=== PATIENT | male | born 1980 | race Caucasian/White ===

== ENCOUNTER 2016-10-10 05:35 | Day surgery (SDC) | payer OTHER ==
[2016-10-08 09:30] VITALS: BMI 29.0
--- NOTE | 2016-10-08 09:50 | PAT Medication Instructions ---
Service Date Oct 08, 2016. Current Home Medication List Cetirizine (Zyrtec), 10 MG PO QAM Fluticasone Propionate (Nasal) (Flonase Allergy Relief), 2 SPRAYS KLEVER QAM Ibuprofen Tab (Advil), 400 MG PO PRN Montelukast Sodium (Montelukast Sodium), 1 TAB PO HS Prednisone (Prednisone), 10 MG PO TAPERING DOSE [Amino Acid], 1 DOSE PO PRN [Amoxiicillin-Pot Cl], 1 TAB PO BID Medication Instructions For Your Scheduled Surgery - Hold the following medications the morning of surgery: Cetirizine (Zyrtec), 10 MG PO QAM Fluticasone Propionate (Nasal) (Flonase Allergy Relief), 2 SPRAYS KLEVER QAM Ibuprofen Tab (Advil), 400 MG PO PRN [Amino Acid], 1 DOSE PO PRN - Take the following medications the morning of surgery with a sip of water OTHERWISE NOTHING TO EAT OR DRINK AFTER MIDNIGHT: Prednisone (Prednisone), 10 MG PO TAPERING DOSE [Amoxiicillin-Pot Cl], 1 TAB PO BID - Take the following medications as scheduled the night before surgery: Montelukast Sodium (Montelukast Sodium), 1 TAB PO HS [Amoxiicillin-Pot Cl], 1 TAB PO BID If you have any questions please call us at [phone] or [phone] or [phone]
[~2016-10-10] VITALS: Ht 177.8 cm; Wt 91.3 kg
[~2016-10-10 05:35] MED LIST: AMINO ACID PO; AMOXICILLIN PO; CETI10TA84 PO; CLAVULANATE PO; FLUT0.15 NAE; IBUP-103 PO; MONT1TAB5 PO; PRED10TA PO
[2016-10-10] MEDS ORDERED: LACTATED RINGER'S 1000ML 1,000 ML IV SCH ×2 (06:00→09:24)
[2016-10-10 06:09] VITALS: BP 155/85; PULSE 82; TEMP 36.5; O2SAT 100; Ht 177.8 cm; Wt 91.3 kg
--- NOTE | 2016-10-10 06:32 | History & Physical Bridge Note ---
H&P Re-Evaluation Bridge Note: I have examined the patient, reviewed the History & Physical and in the interval since the performance of the History & Physical I have noted the following changes of clinical significance: No changes noted
[2016-10-10] MEDS ORDERED: ONDANSETRON INJ 2 MG/ML 2 ML VIAL ONE ×2 (06:41→08:52)
[2016-10-10] MEDS ORDERED: MIDAZOLAM HCL 1 MG/ML 2ML VIAL ONE (06:41)
[2016-10-10] MEDS ORDERED: LIDOCAINE HCL 2% 2 ML VIAL (20MG/ML) ONE (06:41)
[2016-10-10] MEDS ORDERED: GLYCOPYRROLATE INJ 0.2 MG/ML VIAL ONE ×2 (06:41→08:07)
[2016-10-10] MEDS ORDERED: FENTANYL CITRATE INJ 50 MCG/1 ML 2 ML VIAL ONE ×2 (06:41→09:24)
[2016-10-10] MEDS ORDERED: ROCURONIUM BROMIDE 10 MG/ML 5 ML VIAL ONE ×2 (06:41→08:07)
[2016-10-10] MEDS ORDERED: NEOSTIGMINE METHYLSULFATE 5 MG/5 ML SYR ONE (06:41)
[2016-10-10] MEDS ORDERED: PROPOFOL IV EMULSION 10 MG/ML 20 ML VIAL IV ONE ×3 (06:41→08:07)
[2016-10-10] MEDS ORDERED: DEXAMETHASONE SOD INJ 4 MG/ML VIAL ONE (06:41)
[2016-10-10] MEDS ORDERED: LIDOCAINE/EPINEPHRINE 1% 20 ML VIAL ONE (07:10)
[2016-10-10] MEDS ORDERED: LIDOCAINE 4% W/AFRIN NASAL SOLN 4ML ONE ×2 (07:11→08:16)
[2016-10-10] MEDS ORDERED: EpINEphrine INJ 1MG/ML AMP 1 MG/ML AMP ONE (07:11)
[2016-10-10] MEDS ORDERED: CEFAZOLIN SOD 1 GM VIAL ONE (07:23)
[2016-10-10] MEDS ORDERED: LABETALOL HCL IV 5 MG/ML 20ML ONE (08:09)
[2016-10-10] MEDS ORDERED: HYDROmorphone INJ 1 MG/ML SYR IV PRN (09:15)
[2016-10-10] MEDS ORDERED: FENTANYL CITRATE INJ 50 MCG/1 ML 2 ML VIAL IV PRN (09:15)
[2016-10-10] MEDS ORDERED: PROMETHAZINE HCL INJ 6.25 MG in SODIUM CHLORIDE 0.9% 50ML 50 ML IV PRN (09:15)
[2016-10-10] MEDS ORDERED: ONDANSETRON INJ 2 MG/ML 2 ML VIAL IV PRN ×2 (09:15→09:30)
[2016-10-10] MEDS ORDERED: ATROPINE SULFATE 0.1 MG/ML 5ML SYR IV PRN (09:15)
[2016-10-10] MEDS ORDERED: EpHEDrine SULFATE INJ 50 MG/ML AMP IV PRN (09:15)
[2016-10-10] MEDS ORDERED: HYDROmorphone INJ 1 MG/ML SYR ONE (09:24)
--- NOTE | 2016-10-10 09:26 | [facility] Operative Report ---
Operative Report Operative Date Oct 10, 2016. Pre-Operative Diagnosis Chronic sinusitis, nasal septal deviation, hypertrophy of both inferior nasal turbinates, and nasal polyps Post-Operative Diagnosis same Procedure(s) Performed IMAGE-GUIDED BILATERAL FESS, SEPTOPLASTY, AND BILATERAL INFERIOR TURBINATE REDUCTION Surgeon Dr. Osuna Phlebotomist Medical Lab Assistant Surgeon(s) NONE Estimated Blood Loss 100 ml Findings 1. SEVERE SINONASAL POLYPOSIS 2. BILATERAL [place] BULLOSA 3. L>R SEPTAL DEVIATION 4. SEVERE BILATERAL INFERIOR TURBINATE HYPERTROPHY 5. PURULENCE WITHIN ALL PARANASAL SINUSES Specimens none per surgeon I attest to the content of the Intraoperative Record and any orders documented therein. Any exceptions are noted below.
[2016-10-10] MEDS ORDERED: OXYMETAZOLINE HCL 0.05% NA SPR 15 ML BTL PRN (09:30)
[2016-10-10] MEDS ORDERED: HYDROCODONE/ACETAMOPHEN 5/325MG TAB PO PRN (09:30)
--- NOTE | 2016-10-10 09:33 | Discharge Instructions ---
Discharge Instructions Admission Reason for Admission: Chronic Sinustitis; Nasal Septal Deviation Discharge Discharge Diagnosis / Problem: same. Discharge Goals Goal(s): Improve function Activity Recommendations Activity Limitations: per Instructions/Follow-up section Lifting Limitations: no more than 10 pounds Exercise/Sports Limitations: as tolerated Shower/Bathe: no limitations ACTIVITY RECOMMENDATIONS: * Being up and around is good, but no strenuous activity, heavy lifting or physical exertion for one week. * Keep your head elevated 30 degrees when lying down or sleeping. * Do not blow your nose * Avoid hot showers. MEDICATIONS: *PLEASE GET AFRIN NASAL SPRAY - USE 2 SPRAYS EACH NOSTRIL THREE TIMES DAILY FOR 3 DAYS ONLY THEN NEEDED FOR NOSEBLEEDS *USE NASAL SALINE SPRAY - 2 SPRAYS EACH NOSTRIL EVERY 4 HOURS WHILE AWAKE UNTIL FOLLOW UP APPT * RESUME PREDNISONE, AUGMENTIN. YOU HAVE A NEW NARCOTIC PAIN MEDICATION PRESCRIPTION (ON CHART) - USE NEEDED FOR PAIN * Resume previous medications unless instructed otherwise by your surgeon. * Avoid aspirin or Aspirin containing products, i.e. Ibuprofen (Advil) and other non-steroidal anti-inflammatories as they may increase bleeding. SPECIAL CARE INSTRUCTIONS: * Expect to have bloody drainage from your nose and/or down your throat for one to three days. Change drip pad as needed. * You may experience nasal and facial congestion, pain and pressure, this is normal. * Please call with an significant and/or progressive pain, redness, swelling around the eyes, visual changes, fever of 101.5, active bleeding stiff neck or any problems or concerns. * If active bleeding occurs, spray the nose three times at one minute intervals with Afrin spray and call . If unable to reach the doctor, go to the nearest Emergency Department. FOLLOW UP VISIT: * FOLLOW UP SCHEDULED WITH DR. LUGO. . Instructions / Follow-Up Instructions / Follow-Up FOLLOW UP SCHEDULED WITH DR. LUGO. Current Hospital Diet Patient's current hospital diet: Discharge Diet Recommended Diet: Regular Diet Procedures Procedures Performed: Septoplasty, Bilateral Inferior Turbinate Outfracture and Turbinoplasty; Bilateral Maxillary Antrostomy; Bilateral Ethmoidectomies; Bilateral Sphenoidotomies; Lena Bullosa Resection Pending Studies Studies pending at discharge: no Medical Emergencies . Who to Call and When: Medical Emergencies: If at any time you feel your situation is an emergency, please call 911 immediately. . Non-Emergent Contact Non-Emergency issues call your: Primary Care Provider . "Provider Documentation" section prepared by Hannah Corrales. VTE Core Measure Inpt VTE Proph given/why not?: SCD's
[2016-10-10 10:00] VITALS: BP 118/83; PULSE 43; TEMP 36.6; O2SAT 94
--- NOTE | 2016-10-10 10:28 | OPERATIVE REPORT ---
DATE OF OPERATION: 10/10/2016 PREOPERATIVE DIAGNOSIS: 1. Chronic polypoid rhinosinusitis. 2. Septal deviation. 3. Bilateral ruben bullosa. 4. Bilateral inferior turbinate hypertrophy. POSTOPERATIVE DIAGNOSIS: 1. Chronic polypoid rhinosinusitis. 2. Septal deviation. 3. Bilateral ruben bullosa. 4. Bilateral inferior turbinate hypertrophy. PROCEDURES: Breathez [employer] fusion image guided bilateral functional endoscopic sinus surgery consisting of: 1. Bilateral endoscopic ruben bullosa resection. 2. Bilateral maxillary antrostomies. 3. Bilateral complete ethmoidectomies. 4. Balloon sinuplasty assisted bilateral frontal sinusotomies. 5. Bilateral sphenoidotomies. 6. Septoplasty. 7. Bilateral inferior turbinate outfracture and turbinoplasty. SURGEON: Dr. Osuna. ANESTHESIA: General endotracheal. ESTIMATED BLOOD LOSS: 100 mL. FINDINGS: 1. Bilateral ruben bullosa. 2. Severe sinonasal polyposis involving all the paranasal sinuses. 3. Purulence within all the bilateral paranasal sinuses. 4. Severe polypoid mucosal thickening and hypervascular mucosa involving the sinonasal cavities. 5. Left greater than right septal deviation with large bony septal spurs posteriorly on the left hand side. 6. Severe bilateral inferior turbinate hypertrophy. SPECIMENS: None. COMPLICATIONS: None. INDICATIONS FOR THE PROCEDURE: The patient is a 36-year-old male with a history of chronic polypoid rhinosinusitis which has been unresponsive to maximal medical therapy including systemic antibiotics and steroids. He was found to have severe allergies on allergy skin testing. He presents for the above-mentioned procedure on an outpatient elective basis. OPERATION AND FINDINGS: DESCRIPTION OF PROCEDURE: After informed consent had been obtained from the patient, the patient was wheeled to the operating room and placed on the operating table in the supine position. Monitors were placed. After induction of general endotracheal anesthesia, the patient was prepped in the usual fashion for image guided endoscopic sinus surgery. The GiveGab fusion headset was placed and was registered, calibrated and verified and used throughout the sinus case. Lidocaine and epinephrine soaked neurosurgical pledgets were placed in the bilateral nasal cavities and pressure applied. The left-sided pledgets were first removed. The left middle turbinate was hypertrophied due to a large ruben bullosa. The left middle turbinate was injected with 1% lidocaine with 1:100,000 epinephrine. A [place] elevator was used to medialize the left middle turbinate and the lateral nasal wall and uncinate process were also injected with 1% lidocaine with 1:100,000 epinephrine. Lidocaine and epinephrine pledget was then placed into the left middle meatus. The right side was then addressed in a similar fashion. The left side pledgets were then removed. A sickle knife was used to incise the left middle turbinate and the lateral half of the middle turbinate was removed using straight Delfino-Cut forceps and powered instrumentation. Of note, the ruben bullosa was filled with polypoid tissue. An uncinectomy was then performed using a [place] elevator. A straight Delfino-Cut forceps and powered instrumentation. The natural ostium of the left maxillary sinus was identified and this was enlarged anteriorly, inferiorly, and posteriorly using powered instrumentation and straight Delfino-Cut forceps. Of note, the patient had very thick sclerotic bone and severe polypoid mucosal thickening involving the left maxillary sinus along with purulence. Next, attention was taken to the ethmoid sinus. The ethmoid bulla was entered and polypoid tissue was removed using the powered instrumentation. An anterior ethmoidectomy was then performed using powered instrumentation. The grand lamella of the left middle turbinate was then penetrated and more severe polypoid tissue was in the posterior ethmoid system. A complete ethmoidectomy was therefore performed. Using image guidance and staying medial and inferior the left sphenoid sinus was entered using a straight suction. The medial and inferior aspect of the sinus ostia was enlarged using powered instrumentation. A curved frontal sinus, suction was then used to cannulate the left frontal sinus. There was purulence within the left frontal sinus which was completely evacuated. A #6 frontal sinus balloon was inflated to 12 atmospheres of pressure in 2 different locations to dilate the frontal recess tract. Powered instrumentation was then used to remove polypoid tissue that was blocking the left frontal ethmoid recess. Of note, there was severe polypoid mucosal thickening and sinonasal polyposis as well as purulence involving all the paranasal sinuses. He had hypervascular edematous polypoid mucosa as well. The right side was then addressed in a similar fashion with similar intraoperative findings. The nasal septum was then injected with 1% lidocaine with 1:100,000 epinephrine. Lidocaine and epinephrine pledgets were then placed in the bilateral nasal cavities and pressure applied. The pledgets were then removed and a #15 scalpel was used to make a left hemitransfixion incision through which the left-sided mucoperichondrial mucoperiosteal flap was elevated. Most of the patient's deviation was not cartilaginous but rather bony and there was a large bony septal spur impinging on the airway posteriorly on the left hand side. This was removed using Andrew forceps. Of note, the septal mucosal lining was quite thin and hypervascular. There also was a small cartilaginous spur caudally on the right hand side which was nonobstructed which was left undisturbed in order to maintain the patient's nasal cartilaginous structural support. The septal cavity was then suctioned. The left hemitransfixion incision was closed with several simple interrupted 4-0 chromic sutures. A 4-0 plain gut suture on a Tony needle was then used to perform a quilting stitch of the mucoperichondrial mucoperiosteal flaps bilaterally to help prevent septal hematoma. A [place] elevator was then used to infracture and subsequently outfracture the inferior turbinates bilaterally. The inferior turbinates were injected with 1% lidocaine with 1:100,000 epinephrine. A 2.0 mm turbinate blade using powered instrumentation was then used to perform bilateral inferior turbinoplasties in a submucosal fashion. The sinonasal cavities were then suctioned. Of note, there was some bleeding from the right sphenopalatine artery and this was cauterized using suction Bovie electrocautery. This achieved adequate hemostasis. Merogel was then placed into the bilateral ethmoid cavities and middle meati. The nasal cavities and nasopharynx were then suctioned. An orogastric tube was placed and the stomach was suctioned free of air and stomach contents. This marked the end of the case. The patient tolerated the procedure well. There were no apparent complications. The patient was extubated and transferred to recovery room in stable condition. I attest to the content of the Intraoperative Record and any orders documented therein. Any exceptio ns are noted below.
[2016-10-10 10:31] VITALS: BP 120/82; PULSE 55; TEMP 36.3; O2SAT 94
[2016-10-10] MEDS ORDERED: OXYMETAZOLINE HCL 0.05% NA SPR 15 ML BTL ONE (10:53)
[2016-10-10 11:00] VITALS: BP 126/84; PULSE 55; TEMP 36.5; O2SAT 94
--- NOTE | 2016-10-10 11:00 | Anesthesiology Progress Note ---
Anesthesia Post Op Note Date & Time Oct 10, 2016 at 11:00 Vital Signs Pain Intensity: 1 Vital Signs Past 12 Hours Date Time Temp Pulse Resp B/P Pulse Ox O2 Delivery O2 Flow Rate FiO2 10/10/16 10:31 36.3 55 16 120/82 94 Room Air 0 10/10/16 10:00 36.6 43 16 118/83 94 Room Air 0 10/10/16 09:52 36.5 10/10/16 09:48 127/81 10/10/16 09:45 55 10/10/16 09:45 55 16 94 10/10/16 09:43 116/94 10/10/16 09:40 47 16 91 10/10/16 09:40 49 10/10/16 09:38 131/86 10/10/16 09:35 49 10/10/16 09:35 49 14 99 10/10/16 09:33 128/90 10/10/16 09:30 61 14 100 10/10/16 09:30 60 14 10/10/16 09:29 125/75 10/10/16 09:25 63 14 100 10/10/16 09:25 Room Air 10/10/16 09:25 62 14 10/10/16 09:23 131/83 10/10/16 09:21 128/67 10/10/16 09:20 69 21 10/10/16 09:20 69 21 99 10/10/16 09:15 36.7 83 16 129/76 96 Mask 10 10/10/16 06:09 36.5 82 22 155/85 100 Room Air Notes Mental Status: alert / awake / arousable, participated in evaluation Pt Amnestic to Procedure: Yes Nausea / Vomiting: adequately controlled Pain: adequately controlled Airway Patency, RR, SpO2: stable & adequate BP & HR: stable & adequate Hydration State: stable & adequate Anesthetic Complications: no major complications apparent
== END 2016-10-10 11:15 | disposition home or self-care (01) ==
LOC: C.ACU 05:35
DX: J33.1 Polypoid sinus degeneration (principal); J34.2 Deviated nasal septum; J34.3 Hypertrophy of nasal turbinates; J34.89 Other specified disorders of nose and nasal sinuses; J30.9 Allergic rhinitis, unspecified; J32.9 Chronic sinusitis, unspecified; Z86.59 Personal history of other mental and behavioral disorders

== ENCOUNTER → 2017-10-09 | Outpatient (CLI) | payer OTHER ==
[~2017-10-09] MED LIST changes: -IBUP-103 PO
[2017-10-09 12:54] LABS: BASO % 0.3 %; BASO ABS # 0.02 K/uL (0-0.2); EOS % 1.2 %; EOS ABS # 0.08 K/uL (0-0.5); HEMATOCRIT 45.2 % (42-52); HEMOGLOBIN 15.6 g/dL (14.0-18.0); IG# 0.02 K/uL (0.00-0.02); LYMPH % 35.7 %; LYMPH ABS # 2.39 K/uL (1.2-3.4); MEAN CELL VOLUME 91.5 fL (80-100); MEAN CORPUSCULAR HEMOGLOBIN 31.6 pg (25-34); MEAN CORPUSCULAR HGB CONC 34.5 g/dl (32-36); MEAN PLATELET VOLUME 10.3 fL (7.4-10.4); MONO % 9.6 %; MONO ABS # 0.64 K/uL (0.11-0.59); NEUT % 52.9 %; NEUT ABS # 3.55 K/uL (1.4-6.5); PLATELET COUNT 194 K/uL (130-400); RED CELL DISTRIBUTION WIDTH CV 13.1 % (11.5-14.5); RED CELL DISTRIBUTION WIDTH SD 44.2 fL (36.4-46.3)
[2017-10-09 13:30] LABS: ALBUMIN 3.9 gm/dl (3.4-5.0); ALKALINE PHOSPHATASE 56 U/L (45-117); ALT/SGPT 48 U/L (12-78); AST/SGOT 24 U/L (15-37); BLOOD UREA NITROGEN 25 mg/dl (7-18); CALCIUM 8.9 mg/dl (8.5-10.1); CARBON DIOXIDE 28 mmol/L (21-32); CHOLESTEROL 178 mg/dl (0-200); CREATININE 0.94 mg/dl (0.60-1.40); GLUCOSE 94 mg/dl (70-99); LDL CHOLESTEROL CALCULATED 106 mg/dl; POTASSIUM 3.8 mmol/L (3.5-5.1); SODIUM 133 mmol/L (136-145); TOTAL PROTEIN 7.1 gm/dl (6.4-8.2)
== END | disposition home or self-care (01) ==
LOC: C.LAB1850 12:25
PROVIDERS: ATTEND Internal Medicine
DX: Z00.00 Encounter for general adult medical examination without abnormal findings (principal)

== ENCOUNTER → 2017-12-18 | Outpatient (CLI) | payer OTHER | END | disposition home or self-care (01) | LOC: C.LABSPEC 17:08 | PROVIDERS: ATTEND Physician Assistant | DX: J32.9 Chronic sinusitis, unspecified (principal) ==